=== PATIENT | male | born 1980 | race American Indian/Alaskan Native ===

== ENCOUNTER 2019-04-30 00:22 | Emergency (ER) | payer BC, MEDICARE ==
[2019-04-30] MEDS ORDERED: ASPIRIN PO ONE (00:30)
--- NOTE | 2019-04-30 00:54 | XRay Report ---
CHEST 1 VIEW INDICATION / CLINICAL INFORMATION: Chest Pain. COMPARISON: None available. FINDINGS: SUPPORT DEVICES: None. HEART / MEDIASTINUM: No significant abnormality. LUNGS / PLEURA: No significant pulmonary or pleural abnormality. No pneumothorax. ADDITIONAL FINDINGS: Incidental note of bilateral nipple shadows. IMPRESSION: 1. No acute findings. Signer Name: Dennis Sims MD Signed: 04/30/2019 12:50 AM Workstation Name: [id number]
[2019-04-30 01:28] LABS: BUN/Creatinine Ratio 10; Blood Urea Nitrogen 11 mg/dL (9-20); Calcium 9.2 mg/dL (8.4-10.2); Hemolysis Index 45
[2019-04-30] MEDS ORDERED: ASPIRIN ONE (04:19)
[2019-04-30] MEDS ORDERED: NACL 0.9% 500 ML 500 ML IV ONE (04:30)
--- NOTE | 2019-04-30 04:34 | Procedure Note ---
Date of procedure: 04/30/19 Pre-op diagnosis: respiratory distress Post-op diagnosis: same Procedure: Nursing team having difficulty establishing IV access. Evaluated the patient. Recommended placement of external jugular IV, 20-gauge. Risks, benefits, alternatives discussed with patient. The patient provides verbal consent, nurse Ken Ramos is present as a witness The patient's right neck was prepped any typical aseptic fashion. The right- sided external jugular vein was identified, and easily cannulated with a 20- gauge IV. The IV was secured, and the patient tolerated the procedure well. This is a 39-year-old gentleman, not known to this provider previously, history of HIV, CD4 count less than 200, viral load greater than 40,000, on Bactrim suppressive therapy, on highly active antiretroviral therapy, reportedly diagnosed with pericarditis last week. 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 He presents to the ER with a complaint of chest pain and shortness of breath. He is found to be hypoxic. He appears to be somewhat anxious. Emergent laboratory studies ordered, ABG on room air ordered, x-ray the chest, an EKG ordered. Patient will also be given IV fluids. ekg not consistent with stemi Vital Signs 04/30/19 02:58 Pulse Rate 85 Respiratory 24 Rate Blood Pressure 157/115 [Left] O2 Sat by Pulse 94 Oximetry Lab Results 04/30/19 Range/Units 00:30 Sodium 139 (137-145) mmol/L Potassium 4.2 (3.6-5.0) mmol/L Chloride 99.1 (98-107) mmol/L Carbon Dioxide 25 (22-30) mmol/L Anion Gap 19 mmol/L BUN 11 (9-20) mg/dL Creatinine 1.1 (0.8-1.5) mg/dL Estimated GFR > 60 ml/min BUN/Creatinine Ratio 10 % Glucose 81 (75-100) mg/dL Calcium 9.2 (8.4-10.2) mg/dL Troponin T < 0.010 (0.00-0.029) ng/mL Anesthesia: none Surgeon: NITESH PAYNE Technician Preventative Medicine: KEN RAMOS Estimated blood loss: none Pathology: none Condition: stable Disposition: other (er patient)
[2019-04-30] MEDS ORDERED: NACL 0.9% 1000 ML 1,000 ML ONE (04:49)
[2019-04-30 05:26] LABS: ABG Base Excess 0.2 mmol/L (-2.0-3.0); ABG HCO3 24.6 mmol/L (20.0-26.0); ABG Methemoglobin 0.5 % (0.0-1.5); ABG Oxygen Saturation 98.9 % (95.0-99.0); ABG PCO2 39.1 mm Hg; ABG PH 7.417 pH Units (7.350-7.450); ABG PO2 156.6 mm Hg (80.0-90.0)
[2019-04-30 05:35] LABS: INR 0.89 (0.87-1.13)
[2019-04-30 05:37] LABS: Partial Thromboplastin Time 26.1 Sec. (24.2-36.6)
[2019-04-30 05:59] LABS: Bilirubin,Urine NEG (Negative); Blood,Urine NEG (Negative); Color,Urine Straw (Yellow); Protein,Urine <15 mg/dL mg/dL (Negative); Urobilinogen,Urine < 2.0 mg/dL (<2.0); WBC,Urine < 1.0 /HPF (0.0-6.0)
[2019-04-30 06:02] LABS: RBC,Urine < 1.0 /HPF (0.0-6.0)
[2019-04-30 06:05] LABS: Benzodiazepines Screen,Urine PRESUMPTIVE NEGATIVE; Cannabinoid Screen,Urine PRESUMPTIVE NEGATIVE; Cocaine Screen,Urine PRESUMPTIVE NEGATIVE; Methadone Screen,Urine PRESUMPTIVE NEGATIVE; Opiate Screen,Urine PRESUMPTIVE NEGATIVE
[2019-04-30 06:32] LABS: Hematocrit TNR % (35.5-45.6); Hemoglobin TNR gm/dl (11.8-15.2); Mean Corpuscular HGB Conc TNR % (32-34); Mean Corpuscular Volume TNR fl (84-94); Red Blood Count TNR M/mm3 (3.65-5.03); Red Cell Distribution Width TNR % (13.2-15.2)
[2019-04-30 06:33] LABS: Amphetamine Screen,Urine PRESUMPTIVE POSITIVE
[2019-04-30 06:33] LABS: Basophils % (Auto) TNR % (0.0-1.8); Eosinophils % (Auto) TNR % (0.0-4.3); Lymphocytes # (Auto) TNR K/mm3 (1.2-5.4); Lymphocytes % (Auto) TNR % (13.4-35.0); Mean Platelet Volume TNR fl (6-12); Monocytes # (Auto) TNR K/mm3 (0.0-0.8); Monocytes % (Auto) TNR % (0.0-7.3); Platelet Count TNR K/mm3 (140-440)
[2019-04-30 06:34] LABS: Basophils # (Auto) TNR K/mm3 (0.0-0.1); Eosinophils # (Auto) TNR K/mm3 (0.0-0.4)
[2019-04-30 06:44] LABS: Hematocrit 39.3 % (35.5-45.6); Hemoglobin 12.8 gm/dl (11.8-15.2); Mean Corpuscular HGB Conc 33 % (32-34); Mean Corpuscular Volume 89 fl (84-94); Platelet Count 351 K/mm3 (140-440); Red Blood Count 4.42 M/mm3 (3.65-5.03); Red Cell Distribution Width 15.1 % (13.2-15.2)
--- NOTE | 2019-04-30 07:42 | Emergency Department Report ---
ED Chest Pain HPI - General Chief Complaint: Chest Pain Stated Complaint: CHEST PAIN Time Seen by Provider: 04/30/19 07:26 Source: patient, EMS Mode of arrival: Ambulatory Limitations: No Limitations - History of Present Illness Initial Comments: Patient is 39 years old male with history of HIV, hypertension, schizophrenia and substance abuse. Patient presented to the ER complaining of 2 week history of chest pain on and off. Patient describes his pain as sharp, substernal with no radiation area patient denied any shortness of breath, cough or fever. Patient stated that he has been using methamphetamine, last use was 2 days ago. Patient stated that he is hearing voices but denied any visual hallucination, suicidal ideation or homicidal ideation. Patient asked for mental health evaluation. MD Complaint: chest pain -: week(s) (2) Onset: during rest Pain Location: substernal Pain Radiation: none Severity: mild Severity scale (0 -10): 7 Quality: sharp Improves With: nothing Worsens With: nothing - Related Data Home Medications Medication Instructions Recorded Confirmed Last Taken Lisinopril/Hydrochlorothiazide 1 tab PO QDAY 06/27/14 06/27/14 06/27/14 [Zestoretic 10-12.5 mg] 1 cloNIDine [Catapres] 0.2 mg PO HS 06/27/14 06/27/14 06/26/14 1 Allergies Allergy/AdvReac Type Severity Reaction Status Date / Time Penicillins Allergy Hives Verified 04/30/19 00:30 Heart Score - HEART Score History: Slightly suspicious EKG: Normal Age: < 45 Risk factors: 1-2 risk factors Troponin: < normal limit HEART Score: 1 - Critical Actions Critical Actions: 0-3 pts:0.9-1.7%risk of adverse cardiac event.Candidate for discharge ED Review of Systems ROS: Stated complaint: CHEST PAIN Other details as noted in HPI Comment: All other systems reviewed and negative Constitutional: denies: chills, fever Respiratory: denies: cough, shortness of breath, SOB with exertion, wheezing Cardiovascular: denies: chest pain, palpitations Gastrointestinal: denies: abdominal pain, nausea, vomiting, diarrhea, constipation, hematemesis, melena Musculoskeletal: denies: back pain Neurological: denies: headache, weakness, numbness, paresthesias, confusion, abnormal gait ED Past Medical Hx - Past Medical History Hx Hypertension: Yes Hx Psychiatric Treatment: Yes (Ptsd) Hx HIV: Yes Additional medical history: pericarditst - Surgical History Past Surgical History?: Yes Additional Surgical History: hemorrhoids - Social History Smoking Status: Never Smoker Substance Use Type: None - Medications Home Medications: Home Medications Medication Instructions Recorded Confirmed Last Taken Type Lisinopril/Hydrochlorothiazide 1 tab PO QDAY 06/27/14 06/27/14 06/27/14 History [Zestoretic 10-12.5 mg] 1 cloNIDine [Catapres] 0.2 mg PO HS 06/27/14 06/27/14 06/26/14 History 1 ED Physical Exam - General Limitations: No Limitations General appearance: alert, in no apparent distress, anxious - Head Head exam: Present: atraumatic, normocephalic - Eye Eye exam: Present: normal appearance - ENT ENT exam: Present: normal exam, normal orophraynx, mucous membranes moist - Neck Neck exam: Present: normal inspection, full ROM. Absent: tenderness, meningismus, lymphadenopathy, thyromegaly - Respiratory Respiratory exam: Present: normal lung sounds bilaterally. Absent: respiratory distress, wheezes, rales, rhonchi, stridor, chest wall tenderness, accessory muscle use, decreased breath sounds, prolonged expiratory - Cardiovascular Cardiovascular Exam: Present: regular rate, normal rhythm, normal heart sounds - GI/Abdominal GI/Abdominal exam: Present: soft, normal bowel sounds. Absent: distended, tenderness, guarding, rebound, rigid, organomegaly, mass, bruit, pulsatile mass, hernia - Extremities Exam Extremities exam: Present: normal inspection, full ROM, normal capillary refill. Absent: tenderness, pedal edema, calf tenderness - Back Exam Back exam: Present: normal inspection, full ROM. Absent: CVA tenderness (R), CVA tenderness (L), muscle spasm, paraspinal tenderness, vertebral tenderness - Neurological Exam Neurological exam: Present: alert, oriented X3, CN II-XII intact, normal gait, reflexes normal - Psychiatric Psychiatric exam: Present: normal mood, anxious. Absent: depressed, agitated, flat affect, manic, homicidal ideation, suicidal ideation - Skin Skin exam: Present: warm, intact, normal color ED Course Vital Signs 04/30/19 04/30/19 04/30/19 02:58 04:41 05:52 Temperature Pulse Rate 85 89 82 Respiratory 24 19 24 Rate Blood Pressure 157/115 162/117 166/117 [Left] O2 Sat by Pulse 94 100 99 Oximetry 04/30/19 04/30/19 06:57 07:25 Temperature 98.6 F Pulse Rate 94 H 104 H Respiratory 24 16 Rate Blood Pressure 141/102 138/100 [Left] O2 Sat by Pulse 97 Oximetry ED Medical Decision Making - Lab Data Result diagrams: 04/30/19 06:35 04/30/19 00:30 - EKG Data -: EKG Interpreted by Me EKG shows normal: sinus rhythm Rate: normal - EKG Data Interpretation: no acute changes - Radiology Data Radiology results: report reviewed - Medical Decision Making Patient is 39 years old male with history of HIV, hypertension, schizophrenia and substance abuse. Patient presented to the ER complaining of 2 week history of chest pain on and off. Patient describes his pain as sharp, substernal with no radiation area patient denied any shortness of breath, cough or fever. Patient stated that he has been using methamphetamine, last use was 2 days ago. Patient stated that he is hearing voices but denied any visual hallucination, suicidal ideation or homicidal ideation. Patient asked for mental health evaluation. Patient labs reviewed and is unremarkable except for slightly elevated CK. 3 sets of troponin is negative. Patient received a liter of saline IV. Chest x- ray is unremarkable. I believe patient's symptoms is most likely related to his methamphetamine abuse. I counseled the patient about drug abuse. Patient is medically cleared to be evaluated by psychiatric team. Patient has been evaluated by our mental health team and advised patient can be discharged home as an outpatient follow-up. Discharged in a medically and psychiatrically stable conditions. Critical care attestation.: If time is entered above; I have spent that time in minutes in the direct care of this critically ill patient, excluding procedure time. ED Disposition Clinical Impression: Chest pain, Methamphetamine abuse, Schizophrenia Disposition: DC-01 TO HOME OR SELFCARE Is pt being admited?: No Condition: Stable Instructions: Chest Pain (ED) Referrals: PRIMARY CARE, [Primary Care Provider] - 3-5 Days
[2019-04-30] MEDS ORDERED: NACL 0.9% 1000 ML 1,000 ML IV ONE (07:44)
[2019-04-30 13:56] VITALS: BP 130/96
== END 2019-04-30 12:30 | disposition home or self-care (01) ==
LOC: ED 00:22 → EDBD 00:22 → ED 12:30
DX: R07.89 Other chest pain (principal); F15.10 Other stimulant abuse, uncomplicated; F20.9 Schizophrenia, unspecified; I10 Essential (primary) hypertension; F43.10 Post-traumatic stress disorder, unspecified; Z79.899 Other long term (current) drug therapy; Z21 Asymptomatic human immunodeficiency virus [HIV] infection status; Z88.0 Allergy status to penicillin
CPT/HCPCS: 36415; 71045; 80048; 80307; 81001; 82140; 82550; 82803; 83615; 83735; 84484; 85025; 85027; 85610; 85730; 87040; 87086; 93005; 93010; 99285; J7030

== ENCOUNTER 2020-11-30 17:56 | Emergency (ER) | payer MEDICARE ==
[2020-11-30 18:41] VITALS: BP 138/101
[2020-11-30 18:59] LABS: Hematocrit 36.3 % (35.5-45.6); Hemoglobin 12.5 gm/dl (11.8-15.2); Mean Corpuscular HGB Conc 34 % (32-34); Mean Corpuscular Volume 88 fl (84-94); Platelet Count 324 K/mm3 (140-440); Red Blood Count 4.15 M/mm3 (3.65-5.03); Red Cell Distribution Width 14.2 % (13.2-15.2)
[2020-11-30 19:20] LABS: Bilirubin,Urine NEG (Negative); Blood,Urine NEG (Negative); Color,Urine Yellow (Yellow); Mucus,Urine FEW /HPF; RBC,Urine < 1.0 /HPF (0.0-6.0); WBC,Urine < 1.0 /HPF (0.0-6.0)
[2020-11-30 19:21] LABS: Alanine Aminotransferase 62 units/L (7-56); Albumin 4.4 g/dL (3.9-5); BUN/Creatinine Ratio 12; Blood Urea Nitrogen 13 mg/dL (9-20); Calcium 8.7 mg/dL (8.4-10.2); Hemolysis Index 17
[2020-11-30 19:41] LABS: Total Cells Counted 100
[2020-11-30 19:44] LABS: Anisocytosis Few; Platelet Estimate Consistent w Auto
[2020-11-30] MEDS ORDERED: IBUPROFEN 600 MG TAB PO ONE (22:22)
[2020-11-30] MEDS ORDERED: hydrOXYzine PAMOATE 25 MG CAP PO ONE (22:22)
[2020-11-30] MEDS ORDERED: FAMOTIDINE 20 MG TAB PO ONE (22:23)
--- NOTE | 2020-11-30 23:07 | Emergency Department Report ---
ED General Adult HPI - General Chief complaint: Abdominal Pain Stated complaint: SOB, DIARRHEA, BLACK SPOTS ON BODY Source: patient Mode of arrival: Ambulatory Limitations: No Limitations - History of Present Illness Initial comments: Patient is a 40-year-old -Indian male with a history of anxiety, PTSD, schizophrenia, chronic methamphetamine abuse who presents to the ED with complaint of acute onset persistent chest tightness and pain, diffuse abdominal pain and shortness of breath for the last 2 days, worse in the last 12 hours. Patient states that he has not taken his anxiety medications for 2 days and felt that the symptoms are similar to what he felt when he developed anxiety. Patient denies nausea, vomiting, diarrhea, dizziness, syncope, palpitations, c hange in vision, fever, chills, cough, headache, dysuria, urinary frequency and urgency or hematuria. MD Complaint: Chest pain, abdominal pain, anxiety -: Sudden, days(s) (2) Location: chest, abdomen Radiation: non-radiation Severity scale (0 -10): 4 Quality: aching, dull Consistency: intermittent Improves with: none Worsens with: none Associated Symptoms: denies other symptoms, chest pain. denies: confusion, cough, diaphoresis, fever/chills, headaches, loss of appetite, malaise, nausea/vomiting, rash, shortness of breath, syncope, weakness Treatments Prior to Arrival: none - Related Data Home Medications Medication Instructions Recorded Confirmed Last Taken Lisinopril/Hydrochlorothiazide 1 tab PO QDAY 06/27/14 06/27/14 06/27/14 [Zestoretic 10-12.5 mg] 1 cloNIDine [Catapres] 0.2 mg PO HS 06/27/14 06/27/14 06/26/14 1 Previous Rx's Medication Instructions Recorded Last Taken Type Dicyclomine [Bentyl] 20 mg PO Q6H PRN #24 tablet 11/30/20 Unknown Rx Famotidine [Pepcid] 20 mg PO BID #30 tablet 11/30/20 Unknown Rx Ibuprofen [Motrin] 600 mg PO Q8H PRN #20 tablet 11/30/20 Unknown Rx hydrOXYzine PAMOATE [Vistaril] 50 mg PO Q8HR PRN #30 capsule 11/30/20 Unknown Rx Allergies Allergy/AdvReac Type Severity Reaction Status Date / Time Penicillins Allergy Hives Verified 04/30/19 00:30 ED Review of Systems ROS: Stated complaint: SOB, DIARRHEA, BLACK SPOTS ON BODY Other details as noted in HPI Constitutional: denies: chills, fever Eyes: denies: eye pain, eye discharge, vision change ENT: denies: ear pain, throat pain Respiratory: shortness of breath. denies: cough, wheezing Cardiovascular: chest pain. denies: palpitations Endocrine: no symptoms reported Gastrointestinal: abdominal pain. denies: nausea, vomiting, diarrhea Genitourinary: denies: urgency, dysuria Musculoskeletal: denies: back pain, joint swelling, arthralgia Skin: denies: rash, lesions Neurological: denies: headache, weakness, paresthesias Psychiatric: denies: anxiety, depression Hematological/Lymphatic: denies: easy bleeding, easy bruising ED Past Medical Hx - Past Medical History Previous Medical History?: Yes Hx Hypertension: Yes Hx Psychiatric Treatment: Yes (Ptsd) Hx HIV: Yes Additional medical history: pericarditst - Surgical History Additional Surgical History: hemorrhoids - Social History Smoking Status: Never Smoker Substance Use Type: None - Medications Home Medications: Home Medications Medication Instructions Recorded Confirmed Last Taken Type Lisinopril/Hydrochlorothiazide 1 tab PO QDAY 06/27/14 06/27/14 06/27/14 History [Zestoretic 10-12.5 mg] 1 cloNIDine [Catapres] 0.2 mg PO HS 06/27/14 06/27/14 06/26/14 History 1 Dicyclomine [Bentyl] 20 mg PO Q6H PRN #24 tablet 11/30/20 Unknown Rx Famotidine [Pepcid] 20 mg PO BID #30 tablet 11/30/20 Unknown Rx Ibuprofen [Motrin] 600 mg PO Q8H PRN #20 tablet 11/30/20 Unknown Rx hydrOXYzine PAMOATE [Vistaril] 50 mg PO Q8HR PRN #30 capsule 11/30/20 Unknown Rx ED Physical Exam - General Limitations: No Limitations General appearance: alert, in no apparent distress - Head Head exam: Present: atraumatic, normocephalic, normal inspection - Eye Eye exam: Present: normal appearance, PERRL, EOMI Pupils: Present: normal accommodation - ENT ENT exam: Present: normal exam, normal orophraynx, mucous membranes moist, TM's normal bilaterally, normal external ear exam - Neck Neck exam: Present: normal inspection, full ROM - Respiratory Respiratory exam: Present: normal lung sounds bilaterally, chest wall tenderness (Palpable diffuse reproducible anterior chest wall tenderness). Absent: respiratory distress, wheezes, rales, rhonchi, accessory muscle use, decreased breath sounds, prolonged expiratory - Cardiovascular Cardiovascular Exam: Present: normal rhythm, tachycardia, normal heart sounds. Absent: systolic murmur, diastolic murmur, rubs, gallop - GI/Abdominal GI/Abdominal exam: Present: soft, normal bowel sounds. Absent: tenderness, guarding, rebound, hyperactive bowel sounds, hypoactive bowel sounds, organomegaly - Extremities Exam Extremities exam: Present: normal inspection, full ROM, normal capillary refill - Back Exam Back exam: Present: normal inspection, full ROM. Absent: tenderness, CVA tenderness (R), CVA tenderness (L), muscle spasm, paraspinal tenderness - Neurological Exam Neurological exam: Present: alert, oriented X3, CN II-XII intact, normal gait, reflexes normal - Psychiatric Psychiatric exam: Present: normal affect, normal mood - Skin Skin exam: Present: warm, dry, intact, normal color. Absent: rash ED Course Vital Signs 11/30/20 11/30/20 18:38 23:00 Temperature 99.7 F H Pulse Rate 110 H Respiratory 18 18 Rate Blood Pressure 138/101 O2 Sat by Pulse 99 Oximetry ED Medical Decision Making - Lab Data Result diagrams: 11/30/20 18:46 11/30/20 18:46 - Medical Decision Making This is a 40-year-old -Indian male with a history of anxiety, PTSD, schizophrenia, chronic methamphetamine abuse who presents to the ED with complaint of acute onset persistent chest tightness and pain, diffuse abdominal pain and shortness of breath for the last 2 days, worse in the last 12 hours. Patient states that he has not taken his anxiety medications for 2 days and felt that the symptoms are similar to what he felt when he developed anxiety. In the ED, patient is alert and oriented x3 and is not in any distress. Patient is however afebrile, anxious and tachycardic in triage. Lab test results were reviewed and showed elevated transaminitis and leukopenia. Patient was treated for pain in the ED and also given antacids. Based on the history and physical exam findings, as well as lab test results, patient symptoms are likely due to viral gastroenteritis. On reevaluation, patient's pain resolved and tachycardia also resolved with medications. Patient was discharged home on medications and advised to follow-up with his primary care physician in 5 to 7 days for reevaluation or return to the ED immediately if symptoms get worse. - Differential Diagnosis Anxiety; viral gastroenteritis; URI; GERD; costochondritis Critical care attestation.: If time is entered above; I have spent that time in minutes in the direct care of this critically ill patient, excluding procedure time. ED Disposition Clinical Impression: Viral gastroenteritis, Anxiety as acute reaction to exceptional stress Abdominal pain Qualifiers: Abdominal location: generalized Qualified Code(s): R10.84 - Generalized abdominal pain Disposition: TO HOME OR SELFCARE Is pt being admited?: No Does the pt Need Aspirin: No Condition: Stable Instructions: Viral Gastroenteritis, Adult, [id number], Abdominal Pain, Adult, [id number], Generalized Anxiety Disorder, Adult Additional Instructions: All lab test results were reviewed and are all nonactionable. Therefore take medication with food, drink plenty of fluids and follow-up with your primary care physician in 5 to 7 days for reevaluation. Return to the ED immediately if symptoms get worse. Prescriptions: Dicyclomine [Bentyl] 20 mg PO Q6H PRN #24 tablet PRN Reason: ABDOMINAL PAIN Ibuprofen [Motrin] 600 mg PO Q8H PRN #20 tablet PRN Reason: Pain Famotidine [Pepcid] 20 mg PO BID #30 tablet hydrOXYzine PAMOATE [Vistaril] 50 mg PO Q8HR PRN #30 capsule PRN Reason: Anxiety Referrals: [facility] [Provider Group] - 3-5 Days Time of Disposition: 23:07 Print Language: OCCITAN
== END 2020-11-30 23:52 | disposition home or self-care (01) ==
LOC: ED 17:56
DX: A08.4 Viral intestinal infection, unspecified (principal); F41.1 Generalized anxiety disorder; R10.9 Unspecified abdominal pain; I10 Essential (primary) hypertension; F15.10 Other stimulant abuse, uncomplicated; Z98.890 Other specified postprocedural states; Z79.899 Other long term (current) drug therapy; Z88.0 Allergy status to penicillin; Z21 Asymptomatic human immunodeficiency virus [HIV] infection status
CPT/HCPCS: 36415; 80053; 81001; 85007; 85025; 99283; Q0177

== ENCOUNTER 2021-09-21 13:04 | Emergency (ER) | payer MEDICARE | END 2021-09-21 14:30 | disposition left against medical advice (07) | LOC: ED 13:04 | DX: B99.9 Unspecified infectious disease (principal); Z53.21 Procedure and treatment not carried out due to patient leaving prior to being seen by health care provider ==

== ENCOUNTER 2022-03-21 07:13 | Emergency (ER) | payer MEDICARE ==
[2022-03-21 07:25] VITALS: BP 128/89
== END 2022-03-21 07:30 | disposition left against medical advice (07) ==
LOC: ED 07:13
DX: K62.89 Other specified diseases of anus and rectum (principal); Z53.21 Procedure and treatment not carried out due to patient leaving prior to being seen by health care provider